=== PATIENT | male | born 1995 | race Caucasian/White ===

== ENCOUNTER 2018-03-24 09:30 | Inpatient (IN) ==
[2018-03-24] MEDS: Haloperidol Inj 5 MG/ML Ampul IV.PUSH PRN (11:08)
[2018-03-24] MEDS: Sod Chloride 0.9% Inj 1,000 ML IV.CONT SCH (13:00)
[2018-03-24 13:23] LABS: Baso % (Auto) 0.2 % (0.0-2.0); Hematocrit 44.7 % (39.0-51.0); Hemoglobin 15.2 gm/dL (13.0-17.0); Lymph # (Auto) 0.7 th/mm3 (1.0-4.8); Lymph % (Auto) 5.7 % (9.0-44.0); Mean Corpuscular HGB Conc 33.9 % (32.0-36.0); Mean Corpuscular Hemoglobin 30.9 pg (27.0-34.0); Mean Corpuscular Volume 91.1 fL (80.0-100.0); Mean Platelet Volume 8.2 fL (7.0-11.0); Mono % (Auto) 8.7 % (0.0-8.0); Neut # (Auto) 9.7 th/mm3 (1.8-7.7); Neut % (Auto) 85.4 % (16.0-70.0); Platelet Count 186 th/mm3 (150-450); Red Blood Count 4.91 mil/mm3 (4.50-5.90); Red Cell Distribution Width 13.2 % (11.6-17.2); White Blood Count 11.4 th/mm3 (4.0-11.0)
[2018-03-24 13:38] LABS: Alanine Aminotransferase 32 U/L (12-78); Albumin 4.1 g/dL (3.4-5.0); Anion Gap 14 meq/L (5-15); Aspartate Aminotransferase 49 U/L (15-37); Blood Urea Nitrogen 7 mg/dL (7-18); Calcium 8.4 mg/dL (8.5-10.1); Carbon Dioxide 21.3 meq/L (21.0-32.0); Chloride 108 meq/L (98-107); Glomerular Filtration Rate 86 mL/min (>89); Glucose,Random 113 mg/dL (74-106); Potassium 3.6 meq/L (3.5-5.1); Sodium 143 meq/L (136-145)
[2018-03-24 13:40] LABS: Alkaline Phosphatase 65 U/L (45-117); Total Protein 7.2 g/dL (6.4-8.2)
[2018-03-24] MEDS ORDERED: Haloperidol Inj 5 MG/ML Ampul IV.PUSH ONE (15:00)
--- NOTE | 2018-03-24 15:57 | XR ---
EXAM DATE: 03/24/2018 12:00 AM EDT AGE/SEX: 22 years / Male INDICATIONS: Foot pain. CLINICAL DATA: This is the patient's subsequent encounter. Patient reports that signs and symptoms h ave been present for 1 day and indicates a pain score of 0/10. MEDICAL/SURGICAL HISTORY: None. None. COMPARISON: . FINDINGS: A limited two-view examination of the right foot was obtained and not a standard 3 view trauma study. The lateral examination is mildly underpenetrated. There is a nondisplaced oblique fracture involvin g the base of the first distal phalanx which extends into the interphalangeal joint. There is mild ov erlying soft tissue swelling. No other bony abnormalities are identified. CONCLUSION: Nondisplaced fracture involving the first distal phalanx. Electronically signed by: Romario Johnson MD 03/24/2018 3:56 PM EDT
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
[2018-03-24] MEDS: Pantoprazole Inj 40 MG Vial IV.PUSH SCH (20:01)
[2018-03-24] MEDS: Docusate Sodium 100 MG Capsule PO SCH (21:46)
[2018-03-25] MEDS: Sod Chloride 0.9% Inj 1,000 ML IV.CONT SCH ×2 (00:05→10:54)
[2018-03-25] MEDS: Chlorhexidine Gluconate 2% 1 Pack (2 Cloths) TOPICAL SCH (03:29)
[2018-03-25] MEDS ORDERED: Chlorhexidine Gluconate 2% 1 Pack (2 Cloths) TOPICAL PRN (04:00)
[2018-03-25] MEDS: Haloperidol Inj 5 MG/ML Ampul IV.PUSH PRN (05:20)
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
[2018-03-25 07:53] LABS: Amphetamine Screen,Urine Neg (Neg); Barbiturate Screen,Urine Neg (Neg); Cannabinoid Screen,Urine Pos (Neg); Cocaine Screen,Urine Neg (Neg)
[2018-03-25 08:04] LABS: Opiate Screen,Urine Neg (Neg)
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
[2018-03-25 08:52] LABS: Baso % (Auto) 0.2 % (0.0-2.0); Hematocrit 43.7 % (39.0-51.0); Hemoglobin 14.8 gm/dL (13.0-17.0); Lymph # (Auto) 0.7 th/mm3 (1.0-4.8); Lymph % (Auto) 7.3 % (9.0-44.0); Mean Corpuscular HGB Conc 33.8 % (32.0-36.0); Mean Corpuscular Hemoglobin 30.9 pg (27.0-34.0); Mean Corpuscular Volume 91.5 fL (80.0-100.0); Mean Platelet Volume 8.7 fL (7.0-11.0); Mono # (Auto) 1.1 th/mm3 (0.0-0.9); Mono % (Auto) 10.9 % (0.0-8.0); Neut # (Auto) 8.2 th/mm3 (1.8-7.7); Neut % (Auto) 81.6 % (16.0-70.0); Platelet Count 196 th/mm3 (150-450); Red Blood Count 4.78 mil/mm3 (4.50-5.90); Red Cell Distribution Width 13.1 % (11.6-17.2)
[2018-03-25 09:19] LABS: Anion Gap 9 meq/L (5-15); Blood Urea Nitrogen 7 mg/dL (7-18); Calcium 8.6 mg/dL (8.5-10.1); Carbon Dioxide 27.3 meq/L (21.0-32.0); Chloride 106 meq/L (98-107); Glomerular Filtration Rate Greater Than 89 mL/min (>89); Glucose,Random 114 mg/dL (74-106); Potassium 3.8 meq/L (3.5-5.1); Sodium 142 meq/L (136-145)
[2018-03-25] MEDS: Docusate Sodium 100 MG Capsule PO SCH ×2 (10:52→21:32)
[2018-03-25] MEDS: Pantoprazole Inj 40 MG Vial IV.PUSH SCH (10:52)
[2018-03-25] MEDS: Multivitamin Inj 10 ML, Thiamine Inj 100 MG, Folic Acid Inj 1 MG in Sodium Chloride 0.4... IV.SIG SCH ×2 (10:53→12:50)
[2018-03-25] MEDS: QUEtiapine 25 MG Tablet PO SCH ×2 (12:50→16:46)
--- NOTE | 2018-03-25 13:05 | CT ---
EXAM DATE: 03/25/2018 12:00 PM EDT AGE/SEX: 22 years / Male INDICATIONS: Possible subarachnoid hematoma CLINICAL DATA: This is the patient's initial encounter. Patient reports that signs and symptoms have been present for 1 day and indicates a pain score of 0/10. MEDICAL/SURGICAL HISTORY: None. None. RADIATION DOSE: 38.50 CTDI (mGy) COMPARISON: No prior exams available for comparison. [place] TECHNIQUE: CT of the head without contrast. Using automated exposure control and adjustment of the mA and/or kV according to patient size, radiation dose was kept as low as reasonably achievable to ob tain optimal diagnostic quality images. DICOM format image data is available electronically for revi ew and comparison. FINDINGS: Cerebrum: There is evidence of acute intraparenchymal bleed within the left temporal lobe measuring 4.1 cm in greatest dimension. Cytotoxic edema surrounds the area of hemorrhage and partially 4 mm of subfalcine herniation to the right is noted. Underlying vascular malformation, aneurysm or hemorrhagi c mass as well as post-traumatic parenchymal hemorrhage in a patient of this age should be considered . There is a second smaller 6 mm focus of acute hemorrhage more superiorly in the temporoparietal reg ion which is adjacent to the inner table of the skull raising possibility of cortical hemorrhage or e xtra-axial collection. Posterior Fossa: The cerebellum and brainstem are intact. The 4th ventricle is midline. The cerebe llopontine angle is unremarkable. Extracranial: The visualized portion of the orbits is intact. Skull: The calvaria is intact. No evidence of skull fracture. CONCLUSION: 1. Evidence of acute intraparenchymal bleed within the left temporal lobe measuring 4.[address] dimension. Cytotoxic edema surrounds the area of hemorrhage and partially 4 mm of subfalcine herni ation to the right is noted. Underlying vascular malformation, aneurysm or hemorrhagic mass as well a s post-traumatic parenchymal hemorrhage in a patient of this age should be considered. There is a sec ond smaller 6 mm focus of acute hemorrhage more superiorly in the temporoparietal region which is adj acent to the inner table of the skull raising possibility of cortical hemorrhage or extra-axial colle ction. . Electronically signed by: Mook Farrar MD 03/25/2018 1:04 PM EDT
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
[2018-03-25] MEDS: QUEtiapine 100 MG Tablet PO SCH (21:32)
[2018-03-26] MEDS ORDERED: Sodium Chloride 0.9% 2 ML Flush PRN IV.FLUSH (01:05)
[2018-03-26] MEDS: Chlorhexidine Gluconate 2% 1 Pack (2 Cloths) TOPICAL SCH (04:25)
[2018-03-26 05:59] LABS: Baso # (Auto) 0.1 th/mm3 (0.0-0.2); Baso % (Auto) 0.5 % (0.0-2.0); Eos % (Auto) 0.1 % (0.0-4.0); Hematocrit 43.4 % (39.0-51.0); Lymph # (Auto) 1.3 th/mm3 (1.0-4.8); Lymph % (Auto) 11.7 % (9.0-44.0); Mean Corpuscular HGB Conc 34.6 % (32.0-36.0); Mean Corpuscular Volume 89.8 fL (80.0-100.0); Mean Platelet Volume 8.6 fL (7.0-11.0); Mono # (Auto) 0.9 th/mm3 (0.0-0.9); Mono % (Auto) 8.6 % (0.0-8.0); Neut # (Auto) 8.7 th/mm3 (1.8-7.7); Neut % (Auto) 79.1 % (16.0-70.0); Platelet Count 217 th/mm3 (150-450); Red Blood Count 4.84 mil/mm3 (4.50-5.90); Red Cell Distribution Width 12.9 % (11.6-17.2)
[2018-03-26 06:27] LABS: Anion Gap 9 meq/L (5-15); Blood Urea Nitrogen 8 mg/dL (7-18); Calcium 9.5 mg/dL (8.5-10.1); Carbon Dioxide 27.6 meq/L (21.0-32.0); Chloride 102 meq/L (98-107); Glomerular Filtration Rate Greater Than 89 mL/min (>89); Glucose,Random 108 mg/dL (74-106); Potassium 4.2 meq/L (3.5-5.1); Sodium 139 meq/L (136-145)
[2018-03-26] MEDS ORDERED: Morphine Inj 4 MG/ML Vial ONE (09:02)
[2018-03-26] MEDS: Multivitamin Inj 10 ML, Thiamine Inj 100 MG, Folic Acid Inj 1 MG in Sodium Chloride 0.4... IV.SIG SCH (09:30)
--- NOTE | 2018-03-26 09:48 | CT ---
EXAM DATE: 03/26/2018 9:06 AM EDT AGE/SEX: 22 years / Male INDICATIONS: Abnormal prior CT head. CLINICAL DATA: This is the patient's subsequent encounter. Patient reports that signs and symptoms h ave been present for 1 day and indicates a pain score of 0/10. MEDICAL/SURGICAL HISTORY: None. None. RADIATION DOSE: 56.35 CTDI (mGy) COMPARISON: . TECHNIQUE: CT of the head without contrast. Using automated exposure control and adjustment of the mA and/or kV according to patient size, radiation dose was kept as low as reasonably achievable to ob tain optimal diagnostic quality images. DICOM format image data is available electronically for revi ew and comparison. FINDINGS: Cerebrum: There is a persistent parenchymal hemorrhage seen in the left temporal lobe measuring 4.0 x 2.5 cm. This appears to have a more acute component anteriorly. This is unchanged from most recent prior exam. There is a low-density edema seen surrounding this area of hemorrhage. There is 4 mm of l dxq-zp-rkbeg midline shift. There is some mass effect on the anterior aspect of the left lateral vent ricle at the ventricular body and frontal horn region. There is some subarachnoid hemorrhage seen in the anterior aspect of the sylvian fissure region. There is a focal area of hemorrhage seen in the la teral mid left temporal lobe measuring approximately 0.8 cm. This is surrounded by vasogenic edema. T his was present on the prior exam. New areas of hemorrhage are not seen. Posterior Fossa: The cerebellum and brainstem are intact. The 4th ventricle is midline. The cerebe llopontine angle is unremarkable. Extracranial: The visualized portion of the orbits is intact. There is persistent left parietal and temporal scalp swelling. Skull: The calvaria is intact. No evidence of skull fracture. CONCLUSION: 1. Persistent parenchymal hemorrhage in the anterior left temporal lobe. There is a smaller focal ar ea of hemorrhage in the mid lateral left temporal lobe. There is also subarachnoid hemorrhage seen on the left. 2. Persistent 4 mm of klfd-cu-szoco midline shift. 3. New areas of hemorrhage or mass effect are not seen. . Electronically signed by: Javi Hi MD 03/26/2018 9:47 AM EDT
--- NOTE | 2018-03-26 10:23 | CT ---
EXAM DATE: 03/26/2018 9:06 AM EDT AGE/SEX: 22 years / Male INDICATIONS: Abnormal prior CT head. CLINICAL DATA: This is the patient's initial encounter. Patient reports that signs and symptoms have been present for 1 day and indicates a pain score of 0/10. MEDICAL/SURGICAL HISTORY: None. None. RADIATION DOSE: 10.33 CTDI (mGy) ; Combined studies COMPARISON: . TECHNIQUE: Volumetric scanning was performed using a multi-row detector CT scanner during bolus infu hay of 80 ml Visipaque 320 (iodixanol) nonionic water-soluble contrast as a cumulative dose for mul tiple exams. The data was post processed with a variety of visualization algorithms including full volume maximum intensity projection, multi-planar sliding thin slab reformation, curved planar reform ation, and surface rendering techniques. Using automated exposure control and adjustment of the mA a nd/or kV according to patient size, radiation dose was kept as low as reasonably achievable to obtain optimal diagnostic quality images. DICOM format image data is available electronically for review a nd comparison. FINDINGS: There is excellent visualization of the major intracranial arteries out to the second-order branch ve ssels. No aneurysm is seen. The anterior segments of the left middle cerebral artery appears slightly small in the right side which may relate some spasm. Significant beading is not seen. Patient has a prior h emorrhage seen in the left temporal region. CONCLUSION: 1. An aneurysm is not seen. 2. Mild asymmetry to the left middle cerebral artery is small in the right side which could represen t some degree of spasm. The patient has a left-sided hemorrhage. Electronically signed by: Javi Hi MD 03/26/2018 10:21 AM EDT
--- NOTE | 2018-03-26 10:34 | CT ---
EXAM DATE: 03/26/2018 9:06 AM EDT AGE/SEX: 22 years / Male INDICATIONS: Abnormal prior CT head. CLINICAL DATA: This is the patient's initial encounter. Patient reports that signs and symptoms have been present for 1 day and indicates a pain score of 0/10. MEDICAL/SURGICAL HISTORY: None. None. RADIATION DOSE: 10.33 CTDI (mGy) COMPARISON: . TECHNIQUE: Volumetric scanning was performed using a multirow detector CT scanner during bolus infus ion of 80 ml Visipaque 320 (iodixanol) nonionic water-soluble contrast as a cumulative dose for mult iple exams. The data was postprocessed with a variety of visualization algorithms including full-vo lume maximum intensity projection, multiplanar sliding thin-slab reformation, curved-planar reformati on, and surface-rendering techniques. Using automated exposure control and adjustment of the mA and/ or kV according to patient size, radiation dose was kept as low as reasonably achievable to obtain op timal diagnostic quality images. DICOM format image data is available electronically for review and comparison. FINDINGS: Aortic Arch: There is a three-vessel origin of the great vessels from the aorta. No evidence of ost ial narrowing Right Carotid: The common carotid artery is intact. The carotid bulb has a normal configuration wit hout ulceration or narrowing. The internal carotid artery lumen is smooth without stenosis. The ext ernal carotid artery is intact. Left Carotid: The common carotid artery is intact. The carotid bulb has a normal configuration with out ulceration or narrowing. The internal carotid artery lumen is smooth without stenosis. The exte rnal carotid artery is intact. Vertebrals: The vertebral arteries have a symmetric diameter. No stenotic lesions are seen. Percent stenosis is calculated using the diameter of the stenotic region over the diameter of the nor mal distal internal carotid artery. CONCLUSION: Negative CTA of the neck. Electronically signed by: Javi Hi MD 03/26/2018 10:32 AM EDT
[2018-03-26] MEDS: Pantoprazole Inj 40 MG Vial IV.PUSH SCH (10:49)
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
[2018-03-26] MEDS: Docusate Sodium 100 MG Capsule PO SCH ×2 (10:50→20:33)
[2018-03-26] MEDS: Sodium Chloride 0.9% 2 ML Flush BID IV.FLUSH SCH ×2 (10:51→20:33)
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
--- NOTE | 2018-03-26 13:45 | P.PNPOD ---
Subjective Interval history: Discussed possible avulsion today with parents. However due to patient behavior status at this time will re evaluate need for nail avulsion early next week. Mother does not feel he would tolerate procedure well at this time and would like to hold off. Physical Exam Vital signs: Vital Signs 03/25/18 20:00 03/26/18 00:00 03/26/18 04:00 Temperature 98.8 F Pulse Rate 80 85 Respiratory Rate 16 16 14 Blood Pressure 118/67 120/65 Pulse Oximetry 03/26/18 08:00 03/26/18 08:05 03/26/18 12:00 Temperature 98.7 F 99.6 F Pulse Rate 59 L 56 L Respiratory Rate 15 15 15 Blood Pressure 138/63 125/59 L Pulse Oximetry 98 98 97 Intake & Output 03/25/18 03/26/18 03/26/18 18:59 06:59 18:59 Intake Total 1511.2 / 1511.2 105 / 105 100 / 100 Balance 1511.2 / 1511.2 105 / 105 100 / 100 Weight 80 kg Intake: IV 1511.2 / 1511.2 105 / 105 100 / 100 NS Inj 1,000 ML @ 100 mls/hr IV 1000 / 1000 .CONT .Q10H [facility] Rx#:[id number] Ofirmev Inj 1,000 mg In 100 ml 100 / 100 @ 400 mls/hr IV.SIG Q6H PRN Rx# :[id number] MVI-12 Inj 10 ML Thiamine Inj 511.2 / 511.2 100 MG Folvite Inj 1 MG In 1/2 Normal Saline Inj 500 ML @ 127. 8 mls/hr IV.SIG DAILY [facility] Rx#: [id number] Keppra Inj 500 MG In NS Inj 100 105 / 105 ML @ 400 mls/hr IV.SIG Q12H [facility] Rx#:[id number] Medications and Allergies Active Medications: Active Medications Albuterol (Duoneb Neb (Prn)) 1 ampul NEB Q2HR NEB PRN PRN Reason: SHORTNESS OF BREATH Bacitracin (Baciguent Oint) 1 applicatio TOPICAL BID [facility] Last Admin: 03/25/18 21:32 Dose: 1 applicatio Chlorhexidine Gluconate (Chlorhexidine 2% Cloth) 3 pack TOPICAL DAILY@0400 [facility] Stop: 03/30/18 03:59 Last Admin: 03/26/18 04:25 Dose: Not Given Chlorhexidine Gluconate (Chlorhexidine 2% Cloth) 3 pack TOPICAL DAILY@0400 PRN PRN Reason: Extra cloth needed Stop: 03/30/18 03:59 Docusate Sodium (Colace) 100 mg PO BID [facility] Last Admin: 03/26/18 10:50 Dose: Not Given Enalaprilat (Vasotec Inj) 1.25 mg IV.PUSH Q8H PRN PRN Reason: Blood pressure 180/95 Haloperidol Lactate (Haldol Inj) 4 mg IV.PUSH Q4H PRN PRN Reason: AGITATION Last Admin: 03/25/18 05:20 Dose: 4 mg Acetaminophen (Ofirmev Inj) 1,000 mg in 100 mls @ 400 mls/hr IV.SIG Q6H PRN PRN Reason: Pain, Fever > 101 F Last Infusion: 03/26/18 09:24 Dose: Infused Levetiracetam (Keppra) 500 mg PO BID [facility] Ondansetron HCl (Zofran Inj) 4 mg IV.PUSH Q6H PRN PRN Reason: NAUSEA OR VOMITING Pantoprazole Sodium (Protonix Inj) 40 mg IV.PUSH DAILY [facility] Last Admin: 03/26/18 10:49 Dose: 40 mg Quetiapine Fumarate (Seroquel) 50 mg PO BID@0800,1400 [facility] Last Admin: 03/25/18 16:46 Dose: Not Given Quetiapine Fumarate (Seroquel) 100 mg PO HS [facility] Last Admin: 03/25/18 21:32 Dose: Not Given Sodium Chloride (Ns Flush) 2 ml IV.FLUSH BID [facility] Last Admin: 03/26/18 10:51 Dose: 2 ml Sodium Chloride (Ns Flush) 2 ml IV.FLUSH PRN PRN PRN Reason: FLUSH AFTER USING IV ACCESS Allergies Allergy/AdvReac Type Severity Reaction Status Date / Time No Known Allergies Allergy Unverified 03/24/18 10:24 Home Medications Medication Instructions Recorded Confirmed Type sertraline [Zoloft] mg PO DAILY 03/24/18 History Results - Labs CBC & Chem 7: 03/26/18 05:37 03/26/18 05:37 Laboratory Results - last 24 hr 03/26/18 03/26/18 05:37 05:37 WBC 11.0 RBC 4.84 Hgb 15.0 Hct 43.4 MCV 89.8 MCH 31.0 MCHC 34.6 RDW 12.9 Plt Count 217 MPV 8.6 Neut % (Auto) 79.1 H Lymph % (Auto) 11.7 [place] % (Auto) 8.6 H Eos % (Auto) 0.1 Baso % (Auto) 0.5 Neut # (Auto) 8.7 H Lymph # (Auto) 1.3 [place] # (Auto) 0.9 Eos # (Auto) 0.0 Baso # (Auto) 0.1 WBC Differential . Differential Comment Auto diff final Sodium 139 Potassium 4.2 Chloride 102 Carbon Dioxide 27.6 Anion Gap 9 BUN 8 Creatinine 1.01 Estimated GFR Greater than 89 Random Glucose 108 H Calcium 9.5 D - Imaging Impressions Head CT 03/26/18 00:00 CONCLUSION: 1. Persistent parenchymal hemorrhage in the anterior left temporal lobe. There is a smaller focal area of hemorrhage in the mid lateral left temporal lobe. There is also subarachnoid hemorrhage seen on the left. 2. Persistent 4 mm of cadn-gh-ebdrk midline shift. 3. New areas of hemorrhage or mass effect are not seen. . Head CTA 03/26/18 00:00 CONCLUSION: 1. An aneurysm is not seen. 2. Mild asymmetry to the left middle cerebral artery is small in the right side which could represent some degree of spasm. The patient has a left-sided hemorrhage. Neck CTA 03/26/18 00:00 CONCLUSION: Negative CTA of the neck.
[2018-03-26] MEDS: QUEtiapine 25 MG Tablet PO SCH ×2 (14:30→14:55)
[2018-03-26] MEDS: Acetaminophen 325 MG Tablet PO PRN (20:33)
[2018-03-26] MEDS: QUEtiapine 100 MG Tablet PO SCH (20:33)
[2018-03-26] MEDS: levETIRAcetam 500 MG Tablet PO SCH (20:33)
[2018-03-27] MEDS: Acetaminophen 325 MG Tablet PO PRN ×4 (02:16→22:13)
[2018-03-27] MEDS: Chlorhexidine Gluconate 2% 1 Pack (2 Cloths) TOPICAL SCH (03:14)
[2018-03-27] MEDS: QUEtiapine 25 MG Tablet PO SCH ×2 (08:03→14:11)
[2018-03-27] MEDS: levETIRAcetam 500 MG Tablet PO SCH ×2 (08:03→20:00)
[2018-03-27] MEDS: Pantoprazole Inj 40 MG Vial IV.PUSH SCH (08:04)
[2018-03-27] MEDS: Docusate Sodium 100 MG Capsule PO SCH ×2 (08:04→20:00)
[2018-03-27] MEDS: Sodium Chloride 0.9% 2 ML Flush BID IV.FLUSH SCH ×2 (08:04→20:01)
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
[2018-03-27] MEDS: QUEtiapine 100 MG Tablet PO SCH (20:01)
[2018-03-28 04:09] LABS: Hematocrit 41.6 % (39.0-51.0); Hemoglobin 14.2 gm/dL (13.0-17.0); Mean Corpuscular HGB Conc 34.1 % (32.0-36.0); Mean Corpuscular Volume 90.8 fL (80.0-100.0); Mean Platelet Volume 8.5 fL (7.0-11.0); Platelet Count 230 th/mm3 (150-450); Red Blood Count 4.58 mil/mm3 (4.50-5.90); White Blood Count 7.8 th/mm3 (4.0-11.0)
[2018-03-28 04:45] LABS: Calcium 8.6 mg/dL (8.5-10.1); Carbon Dioxide 27.2 meq/L (21.0-32.0); Potassium 3.4 meq/L (3.5-5.1)
[2018-03-28] MEDS: Acetaminophen 325 MG Tablet PO PRN ×3 (06:01→18:05)
[2018-03-28] MEDS: Chlorhexidine Gluconate 2% 1 Pack (2 Cloths) TOPICAL SCH (06:06)
[2018-03-28] MEDS: QUEtiapine 25 MG Tablet PO SCH ×2 (07:53→13:06)
--- NOTE | 2018-03-28 08:31 | CT ---
EXAM DATE: 03/28/2018 5:06 AM EDT AGE/SEX: 22 years / Male INDICATIONS: Follow up hemorrhage. CLINICAL DATA: This is the patient's subsequent encounter. Patient reports that signs and symptoms h ave been present for 2 days and indicates a pain score of 0/10. MEDICAL/SURGICAL HISTORY: None. None. RADIATION DOSE: 37.89 CTDI (mGy) COMPARISON: [facility] [place] HEAD W/O CONTRAST, 03/26/2018. . TECHNIQUE: CT of the head without contrast. Using automated exposure control and adjustment of the mA and/or kV according to patient size, radiation dose was kept as low as reasonably achievable to ob tain optimal diagnostic quality images. DICOM format image data is available electronically for revi ew and comparison. FINDINGS: Cerebrum: Left temporal hemorrhage again seen measuring 3.4 x 2.5 cm. Adjacent vasogenic edema with mass effect and erfs-eu-ldigk midline shift of 4 mm. There is compression upon the left lateral ventr icle. Second smaller focus of hemorrhage seen more superiorly and laterally without significant lopez e.. Posterior Fossa: The cerebellum and brainstem are intact. The 4th ventricle is midline. The cerebe llopontine angle is unremarkable. Extracranial: The visualized portion of the orbits is intact. Extensive scalp contusion with chandan seen in the right parietal region. Skull: The calvaria is intact. No evidence of skull fracture. CONCLUSION: Left temporal intraparenchymal hemorrhage with mass effect and xltu-oa-vcege midline meme ft of 4 mm. No significant interval change. . Electronically signed by: Rudy Choi MD 03/28/2018 8:29 AM EDT
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
[2018-03-28] MEDS: levETIRAcetam 500 MG Tablet PO SCH ×2 (08:53→21:25)
[2018-03-28] MEDS: Docusate Sodium 100 MG Capsule PO SCH (08:53)
[2018-03-28] MEDS: Sodium Chloride 0.9% 2 ML Flush BID IV.FLUSH SCH ×2 (08:53→21:26)
[2018-03-28] MEDS: Pantoprazole Inj 40 MG Vial IV.PUSH SCH (08:54)
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
[2018-03-28] MEDS ORDERED: Lidocaine PF 0.5% Inj 50 ML Vial INFILTRATN SCH (16:15)
[2018-03-28] MEDS ORDERED: QUEtiapine 100 MG Tablet PO SCH (21:00)
[2018-03-29] MEDS: Docusate Sodium 100 MG Capsule PO SCH ×3 (00:24→20:14)
[2018-03-29] MEDS: Acetaminophen 325 MG Tablet PO PRN ×4 (01:45→23:05)
[2018-03-29] MEDS: Chlorhexidine Gluconate 2% 1 Pack (2 Cloths) TOPICAL SCH (04:01)
[2018-03-29] MEDS: levETIRAcetam 500 MG Tablet PO SCH ×2 (08:15→20:14)
[2018-03-29] MEDS: QUEtiapine 25 MG Tablet PO SCH ×2 (08:17→13:16)
[2018-03-29] MEDS: Pantoprazole Inj 40 MG Vial IV.PUSH SCH (08:18)
[2018-03-29] MEDS: Sodium Chloride 0.9% 2 ML Flush BID IV.FLUSH SCH ×2 (08:18→23:55)
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
--- NOTE | 2018-03-29 08:40 | P.PNPOD ---
Subjective Interval history: Right hallux distal phalanx fracture and subungual hematoma. Patient states he is only having pain with pressure. He is agreeable to a nail avulsion at this time. Physical Exam Vital signs: Vital Signs 03/28/18 12:00 03/28/18 16:00 03/28/18 20:00 Temperature 98.6 F 98.4 F 98.5 F Pulse Rate 82 89 96 H Respiratory Rate 16 14 16 Blood Pressure 123/59 L 140/59 L 131/74 Pulse Oximetry 100 100 100 03/29/18 00:00 03/29/18 04:00 Temperature 99.8 F H 98.7 F Pulse Rate 96 H 85 Respiratory Rate 18 17 Blood Pressure 111/58 L 117/60 Pulse Oximetry 100 98 Intake & Output 03/28/18 03/29/18 03/29/18 18:59 06:59 18:59 Weight 78.7 kg Other: # Voids 6 Date of Last Bowel Movement 03/27/18 03/29/18 # Bowel Movements 1 Narrative: Post procedure the right hallux nail bed is healthy and granular, no lacerations or deep wounds. Surrounding digital ecchymosis and edema. Medications and Allergies Active Medications: Active Medications Acetaminophen (Tylenol) 650 mg PO Q6H PRN PRN Reason: PAIN 1-10 Last Admin: 03/29/18 08:14 Dose: 650 mg Albuterol (Duoneb Neb (Prn)) 1 ampul NEB Q2HR NEB PRN PRN Reason: SHORTNESS OF BREATH Bacitracin (Baciguent Oint) 1 applicatio TOPICAL BID [facility] Last Admin: 03/29/18 08:16 Dose: 1 applicatio Chlorhexidine Gluconate (Chlorhexidine 2% Cloth) 3 pack TOPICAL DAILY@0400 [facility] Stop: 03/30/18 03:59 Last Admin: 03/29/18 04:01 Dose: Not Given Chlorhexidine Gluconate (Chlorhexidine 2% Cloth) 3 pack TOPICAL DAILY@0400 PRN PRN Reason: Extra cloth needed Stop: 03/30/18 03:59 Docusate Sodium (Colace) 100 mg PO BID [facility] Last Admin: 03/29/18 08:17 Dose: Not Given Enalaprilat (Vasotec Inj) 1.25 mg IV.PUSH Q8H PRN PRN Reason: Blood pressure 180/95 Acetaminophen (Ofirmev Inj) 1,000 mg in 100 mls @ 400 mls/hr IV.SIG Q6H PRN PRN Reason: Pain, Fever > 101 F Last Infusion: 03/26/18 09:24 Dose: Infused Levetiracetam (Keppra) 500 mg PO BID [facility] Last Admin: 03/29/18 08:15 Dose: 500 mg Miscellaneous (Pill Splitter) 1 each OTHER DAILY [facility] Nicotine (Habitrol 14 Mg Patch.24 Hr) 1 patch T-DERMAL DAILY [facility] Last Admin: 03/29/18 08:15 Dose: 1 patch Ondansetron HCl (Zofran Inj) 4 mg IV.PUSH Q6H PRN PRN Reason: NAUSEA OR VOMITING Pantoprazole Sodium (Protonix Inj) 40 mg IV.PUSH DAILY [facility] Last Admin: 03/29/18 08:18 Dose: Not Given Patch Removal (Remove Old Patch) 1 each T-DERMAL HS [facility] Last Admin: 03/29/18 00:24 Dose: 1 each Quetiapine Fumarate (Seroquel) 25 mg PO BID@0800,1400 [facility] Last Admin: 03/29/18 08:17 Dose: 25 mg Quetiapine Fumarate (Seroquel) 50 mg PO HS [facility] Last Admin: 03/28/18 21:25 Dose: 50 mg Sodium Chloride (Ns Flush) 2 ml IV.FLUSH BID [facility] Last Admin: 03/29/18 08:18 Dose: Not Given Sodium Chloride (Ns Flush) 2 ml IV.FLUSH PRN PRN PRN Reason: FLUSH AFTER USING IV ACCESS Allergies Allergy/AdvReac Type Severity Reaction Status Date / Time No Known Allergies Allergy Unverified 03/24/18 10:24 Home Medications Medication Instructions Recorded Confirmed Type sertraline [Zoloft] 20 mg PO DAILY 03/24/18 03/28/18 History Results - Labs CBC & Chem 7: 03/28/18 03:06 03/28/18 03:06 Assessment and Plan - Plan 1)Right subungual hematoma 2)Right distal phalanx fracture -bedside nail avulsion completed -daily wound care orders entered for nursing staff -WBAT in surgical shoe
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
--- NOTE | 2018-03-29 13:44 | P.PN ---
Subjective Interval history: No neuro changes. Still with confusion and impulsiveness Patient's mother reports he is not sleeping at night Physical Exam Vital signs: Vital Signs 03/28/18 16:00 03/28/18 20:00 03/29/18 00:00 Temperature 98.4 F 98.5 F 99.8 F H Pulse Rate 89 96 H 96 H Respiratory Rate 14 18 18 Blood Pressure 140/59 L 131/74 111/58 L Pulse Oximetry 100 100 100 03/29/18 04:00 03/29/18 08:00 03/29/18 09:00 Temperature 98.7 F 99.7 F H Pulse Rate 85 71 Respiratory Rate 18 20 19 Blood Pressure 117/60 130/69 Pulse Oximetry 98 99 03/29/18 10:17 03/29/18 12:00 Temperature 98.1 F Pulse Rate 87 Respiratory Rate 20 Blood Pressure 126/62 Pulse Oximetry 98 99 Intake & Output 03/28/18 03/29/18 03/29/18 18:59 06:59 18:59 Weight 78.7 kg Other: # Voids 6 Date of Last Bowel Movement 03/27/18 03/29/18 # Bowel Movements 1 Narrative: GENERAL: 22 year old well-nourished, well developed male lying in bed in no acute distress. SKIN: Warm and dry. Scattered areas of abrasion noted open to air. HEAD: Normocephalic. EYES: Pupils equal and round. No scleral icterus. CARDIOVASCULAR: Regular rate and rhythm. RESPIRATORY: No accessory muscle use. Lungs clear to auscultation. Breath sounds equal bilaterally. GASTROINTESTINAL: Abdomen soft, non-tender, nondistended. + BS. MUSCULOSKELETAL: Extremities without cyanosis, or edema. MAEW, + perfused NEUROLOGICAL: Awake and confused. Intermittent agitation. Expressive aphasia. Results - Labs CBC & Chem 7: 03/28/18 03:06 03/28/18 03:06 Assessment and Plan - Plan INJURIES: RIGHT parietal skull fx LEFT temporal contusion SAH RIGHT first phalanx fx RIGHT parietal skull fx, LEFT temporal contusion, SAH Neurosurgery consulted Nonoperative management 03/28: CT Brain-stable 03/26: CT Brain- 4cm clot left temporal lobe, 3mm shift Neuro checks Neuropsychology consulted Seroquel 25/25/HS dose increased to 75 PO Keppra x 7 days PT/OT ordered- ambulating unassisted in room Tylenol has not been effective for headache. Try Tramadol PRN. Monitor for worsening confusion or impulsiveness Low stimulation room No routine HS vitals ST consulted for cognitive eval RIGHT first phalanx fx Podiatry consulted 03/28: bedside nail avulsion Wound care per podiatry WBAT in surgical shoe Plan of care discussed with patient and his parents at bedside. Discussed that patient will likely be going home in the next few days and will need constant supervision until he is able to make decisions safely. Collaborating Trauma surgeon agrees with plan. Case management consulted to assist with discharge planning. Awaiting neurosurgery clearance for discharge. - Attending Attestation The exam, history, and the medical decision-making described in the above note were completed with the assistance of the mid-level provider. I reviewed and agree with the findings presented. I attest that I had a [id number] encounter with the patient on the same day, and personally performed and documented my assessment and findings in the medical record. Trauma patient seen and examined, s/p [facility] Neuro exam stable to improving, GCS 14, mildly impulsive continue pain control, PT and discharge planning d/w family at bedside, all questions answered
--- NOTE | 2018-03-29 16:43 | P.DCO ---
- Diagnosis (1) SAH (subarachnoid hemorrhage) Status: Acute (2) Contusion of left temporal lobe Status: Acute (3) Fracture of parietal bone of skull Status: Acute (4) Major neurocognitive disorder as late effect of traumatic brain injury with behavioral disturbance Status: Acute - Physical Therapy Order: Evaluate and treat, Improve ambulation, Strength and gait training - Occupational Therapy Order: Evaluate and treat, Improve ADL - Speech Therapy Order: To improve: Speech and communication skills, Cognitive skills - Case Management Consult No - Certification I have seen patient Donal Arellano on 03/29/18. My clinical findings support the need for the requested home health care services because: Deconditioned with increased weakness, Impaired cognition/judgement I certify that my clinical findings support that this patient is homebound because: Impaired cognitive ability/safety, Unsteady gait/balance, Unsafe to leave home unassisted, Unable to use public transportation
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
[2018-03-29] MEDS ORDERED: QUEtiapine 25 MG Tablet PO SCH (21:00)
[2018-03-30] MEDS: Acetaminophen 325 MG Tablet PO PRN ×2 (03:49→10:42)
[2018-03-30] MEDS: levETIRAcetam 500 MG Tablet PO SCH (08:12)
[2018-03-30] MEDS: Sodium Chloride 0.9% 2 ML Flush BID IV.FLUSH SCH (08:13)
[2018-03-30] MEDS: Docusate Sodium 100 MG Capsule PO SCH (08:13)
[2018-03-30] MEDS: Pantoprazole Inj 40 MG Vial IV.PUSH SCH (08:14)
[2018-03-30] MEDS: QUEtiapine 25 MG Tablet PO SCH ×2 (08:19→14:49)
[2018-03-30 08:35] VITALS: RESP 17
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
[2018-03-30 12:38] VITALS: BP 132/60; PULSE 61; TEMP 97.1; O2SAT 99
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
== END 2018-03-30 16:50 | disposition home health service (06) ==
LOC: N03 09:57 → N05 03-28 12:32
PROVIDERS: ADMIT Surgery; ATTEND Surgery